=== PATIENT | female | born 1995 | race African-American/Black ===

== ENCOUNTER 2017-01-08 07:00 | Inpatient (IN) ==
[2017-01-08] MEDS: LACTATED RINGERS 1,000 ML IV SCH ×3 (07:34→19:22)
[2017-01-08] MEDS ORDERED: LACTATED RINGERS 500 ML IV PRN (07:46)
[2017-01-08] MEDS ORDERED: ONDANSETRON 4 MG/2 ML VIAL IV PRN ×2 (07:46→21:55)
[2017-01-08 08:00] LABS: Basophils % 0.2 % (0.0-0.8); Eosinophils % 0.4 % (0.00-10.9); Hematocrit 37.1 VOL% (35.7-47.0); Hemoglobin 12.9 GM/DL (12.0-16.0); Immature Granulocytes % 0.6 %; Immature Granulocytes Absolute 0.05 #; Lymphocytes # 2.4 10*3/uL (1.4-4.0); Lymphocytes % 28.5 % (21.3-54.2); Mean Corpuscular HGB Conc 34.8 GM/DL (32-36); Mean Corpuscular Hemoglobin 30 PG (27-34); Mean Corpuscular Volume 86.3 FL (87-102); Mean Platelet Volume 11.9 FL (9.6-12.0); Monocytes # 0.8 10*3/uL (0.11-0.8); Monocytes % 9.3 % (1.7-12.7); Neutrophils # 5.2 10*3/uL (1.4-7.4); Platelet Count 152 T/CUMM (130-400); Red Cell Distribution Width 14.1 % (9.3-17.3); White Blood Count 8.5 T/CUMM (4-12)
[2017-01-08] MEDS ORDERED: OXYTOCIN/LR 20 UNIT/1,000 ML BAG IV SCH (08:00)
--- NOTE | 2017-01-08 08:36 | OB/GYN History & Physical ---
History of Present Illness Chief complaint: In for elective induction of labor due to term . History of present illness: Ms. Sims is a 21 year old female primigravida who presents to labor department for elective induction of labor due to term . Her LORIE is 01/15/2017 for an estimated gestational age of 39 weeks. The patient presents for elective induction of labor due to the above. The risk and benefits has been thoroughly discussed with this patient and significant other, plan of care has been discussed with Dr. Eubanks and all parties are in agreement plan. [facility], she received routine care and her course was uneventful. labs: She is B+ , hepatitis B is negative, rubella is immune, HIV is negative, RPR is nonreactive, GBS culture status unknown. Review of systems is negative with exception of above. Home Medications Medication Instructions Recorded Confirmed Type Multivitamin () [ 1 tablet PO DAILY 10/11/16 01/01/17 History Vitamin] Allergies Allergy/AdvReac Type Severity Reaction Status Date / Time No Known Allergies Allergy Verified 01/01/17 10:37 12 point system: reviewed and no additional remarkable complaints except as stated Medical,Surgical,& Family Hx - Medical History Medical History: noncontributory - Surgical History Surgical History: noncontributory - Family History Family History: Reports;: Family Cancer (Return to grandfather prostate), Family Diabetes (Return to grandmother), Family Hypertension (Mom, dad, maternal grandmother) - Social History 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 - Constitutional General appearance: no acute distress - Antepartum / Post Antepartum Exam Cervix - Dilatation: 3 cm Effacement: 50% Station: -2 Rupture: Intact Presentation: Vertex Heart Rate: 140s Abdomen obstetrics: Present: bowel sounds normal Vagina: Present: normal moisture Uterus exam: Present: enlarged Anus/Rectum: Present: normal perianal skin - Respiratory Respiratory exam: Present: clear to auscultation bilaterally - Cardiovascular Cardiovascular exam: Present: regular rate and rhythm - GI/Abdominal GI/Abdominal exam: Present: normal bowel sounds, soft - Extremities Exam Extremities exam: Present: normal inspection - Neurological Exam Neurological exam: Present: alert, oriented X3 - Psychiatric Psychiatric exam: Present: normal affect, normal mood - Skin Skin exam: Present: normal color, warm Assessment and Plan (1) 39 weeks gestation of Status: Acute Assessment and plan: Admit IV fluids IV Pitocin per protocol Artificial rupture membranes when appropriate Internal monitors if indicated Epidural anesthesia if desired Anticipate Current Visit: Yes Results - Labs CBC & BMP: 01/08/17 07:46
[2017-01-08 08:37] LABS: Alanine Aminotransferase 10 U/L (13-56); Alkaline Phosphatase 172 U/L (45-117); Aspartate Amino Transferase 11 U/L (0-37); Bilirubin,Total < 0.39 MG/DL (0.2-1.0); Blood Urea Nitrogen 9 MG/DL (7-18); Calcium 9.3 MG/DL (8.5-10.1); Glucose 103 MG/DL (74-106); Osmolality,Calculated 271.8 MOS/KG (273-304); Potassium 3.9 MMOL/L (3.5-5.1); Sodium 137 MMOL/L (136-145); Total Protein 7.3 G/DL (6.4-8.3); Uric Acid 4.6 MG/DL (2.6-6.0)
[2017-01-08] MEDS ORDERED: PROMETHAZINE 25 MG/1 ML VIAL IM PRN (11:12)
[2017-01-08] MEDS ORDERED: FAMOTIDINE 20 MG/2 ML VIAL IV ONE (11:12)
[2017-01-08] MEDS ORDERED: hydrOXYzine HCL 25 MG/1 ML VIAL IM PRN (11:12)
[2017-01-08] MEDS ORDERED: ePHEDrine 50 MG/ML AMP IV PRN (11:12)
[2017-01-08] MEDS ORDERED: CITRIC ACID/SODIUM CITRATE 30 ML UDCUP PO ONE (11:12)
[2017-01-08] MEDS ORDERED: fentaNYL 2 MCG/ROPIV 0.2% EPID 150 ML EPIDURAL SCH (11:12)
[2017-01-08] MEDS ORDERED: MEPERIDINE 50 MG/1 ML VIAL IV PRN (11:42)
[2017-01-08 14:36] LABS: Apearance,Urine CLEAR (Clear); Bilirubin,Urine Negative (Negative); Blood, Urine Negative (Negative); Glucose,Urine (UA) Negative (Negative); Ketones,Urine 20 mg/dL (Negative); Mucus,Urine Few /LPF (Occasional); Nitrite,Urine Negative (Negative); Protein,Urine 30 MG/DL; RBC,Urine 1 /HPF (0-4); Squamous Epithelial Cell,Urine Occasional /HPF (0-10); Urine Color Yellow (Yellow); Urine Specific Gravity 1.026 (1.001-1.035); Urine Urobilinogen < 2.0 EU/DL (0.2-1.0); WBC,Urine 1 /HPF (0-6)
[2017-01-08] MEDS ORDERED: TERBUTALINE 1 MG/1 ML VIAL SUBCUT ONE ×2 (17:50→17:58)
[2017-01-08] MEDS ORDERED: LIDOCAINE 1% 50 ML VIAL ONE (20:04)
[2017-01-08] MEDS ORDERED: miSOPROStol 200 MCG TABLET ONE (20:05)
[2017-01-08] MEDS ORDERED: OXYTOCIN 10 UNIT/ML VIAL ONE (20:57)
[2017-01-08] MEDS ORDERED: ceFAZolin 2,000 MG in PREMIX 1 EACH IV ONE (21:20)
[2017-01-08] MEDS ORDERED: OXYTOCIN 10 UNIT/ML VIAL IM ONE (21:20)
[2017-01-08] MEDS ORDERED: OXYTOCIN/LR 20 UNIT/1,000 ML BAG IV ONE ×2 (21:20→21:55)
--- NOTE | 2017-01-08 21:54 | Operative Note ---
Date of procedure: 01/08/17 Procedure: Preoperative diagnosis: Failure to progress, IUGR Postoperative diagnosis: Same Anesthesia:[] Regional anesthesia Estimated blood loss: [] 250 Surgeon: Dr. Eubanks Findings: [] 5 lbs. 14 oz., female occiput posterior large amount of Capoten molding, nuchal cord around the neck once, placenta had multiple areas of calcification consistent with a grade 3 placenta as indicated on the ultrasound , Apgars was 7 and 1 minute 8 at 5, cord blood and cord gas was obtained Complications: None Procedure: Low transverse section The patient was taken to the operating suite heart tones were obtained prior to and after regional anesthesia was obtained. She was placed in supine position her abdomen was prepped and draped in usual manner for major abdominal surgery. Through an abdominal incision the skin, subcutaneous, fascial layer and peritoneal the abdomen was entered. The bladder flap was created and a low transverse incision was made.. Fluid was clear and normal amount X, Apgars, the placenta was delivered and sent to lab for further evaluation. Injected with intrauterine Pitocin. The first layer of the uterus was closed with #1 Vicryl in a continuous locking manner. Close to imbricate the first layer with #1 Vicryl. The peritoneum was approximated with #2-0 Vicryl.[] All the last sponges and instruments were accounted for -2.) #2-0 Vicryl. Fascia was approximated with #0-0 Maxon.. The skin was approximated with howard. She tolerated procedure well and was taken to recovery room in stable condition. Surgeon / Physician: Gold Eubanks Results - Labs CBC & BMP: 01/08/17 07:46 01/08/17 07:46 Discharge Plan - Discharge Medications No Action Multivitamin () [ Vitamin] 1 tablet PO DAILY - Follow Up or Referral - Forms/Instructions
[2017-01-08 21:55] LABS: Cord Arterial Blood HCO3 19.8 MMOL/L
[2017-01-08] MEDS ORDERED: SIMETHICONE CHEW 80 MG TABLET PO PRN (21:55)
[2017-01-08] MEDS ORDERED: RHO(D) IMMUNE GLOBULIN 300 MCG SYRINGE IM ONE (21:55)
[2017-01-08] MEDS ORDERED: ACETAMINOPHEN 325 MG TABLET PO PRN (21:55)
--- NOTE | 2017-01-08 21:55 | Anesthesia Post-Op ---
Anesthesia Post OP - Post Ansesthetic Evaluation Patient seen in post op: Yes Resp: within normal limits CV: within normal limits Mental: within normal limits Temp: within normal limits Faie-Lv-Racnwhswv: within normal limits Nausea and Vomiting: within normal limits Pain: within normal limits
[2017-01-08] MEDS ORDERED: fentaNYL 100 MCG/2 ML VIAL ONE (21:56)
[2017-01-08 21:59] LABS: Cord Venous Blood PCO2 41.6 MMHG
[2017-01-08] MEDS ORDERED: LACTATED RINGERS 1,000 ML IV SCH (22:00)
[2017-01-09] MEDS: IBUPROFEN 800 MG TABLET PO PRN ×2 (00:08→13:05)
[2017-01-09 06:32] LABS: Basophils % 0.1 % (0.0-0.8); Eosinophils % 0.1 % (0.00-10.9); Hematocrit 32.1 VOL% (35.7-47.0); Hemoglobin 11.2 GM/DL (12.0-16.0); Immature Granulocytes % 0.6 %; Immature Granulocytes Absolute 0.08 #; Lymphocytes % 15.2 % (21.3-54.2); Mean Corpuscular HGB Conc 34.9 GM/DL (32-36); Mean Corpuscular Hemoglobin 30 PG (27-34); Mean Corpuscular Volume 85.8 FL (87-102); Mean Platelet Volume 11.6 FL (9.6-12.0); Monocytes % 7.6 % (1.7-12.7); Neutrophils # 10.3 10*3/uL (1.4-7.4); Neutrophils % 76.4 % (38.7-73.9); Platelet Count 114 T/CUMM (130-400); Red Blood Count 3.74 MC/CUMM (3.8-5.5); Red Cell Distribution Width 13.9 % (9.3-17.3); White Blood Count 13.4 T/CUMM (4-12)
[2017-01-09] MEDS: MULTIVITAMIN (PRENATAL) TABLET PO SCH (08:44)
[2017-01-09] MEDS: DOCUSATE SODIUM 100 MG CAPSULE PO SCH ×2 (08:44→21:06)
--- NOTE | 2017-01-09 09:40 | OB/GYN Progress Note ---
Assessment and Plan (1) 39 weeks gestation of Status: Acute Assessment and plan: Admit IV fluids IV Pitocin per protocol Artificial rupture membranes when appropriate Internal monitors if indicated Epidural anesthesia if desired Anticipate Current Visit: Yes (2) Status post primary low transverse section Status: Acute Assessment and plan: Initiate routine postop orders. 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 Vitals: Vital Signs Temp Pulse Resp BP Pulse Ox 01/09/17 07:29 97.6 F 77 20 116/55 96 01/09/17 04:00 97.1 F L 78 18 97/50 99 01/09/17 03:25 97.1 F L 78 18 97/50 99 01/09/17 02:25 86 18 128/78 99 01/09/17 01:25 83 18 125/76 98 01/09/17 00:55 86 18 134/77 99 01/09/17 00:25 98.9 F 91 H 18 148/79 99 01/08/17 23:40 97.9 F 01/08/17 23:10 98.7 F 80 18 135/69 99 01/08/17 22:40 98.7 F 01/08/17 22:25 98.8 F 01/08/17 22:10 98.8 F 01/08/17 21:55 98.6 F 104 H 18 120/56 100 01/08/17 12:00 97.8 F 113 H 17 139/76 General appearance: no acute distress - Antepartum / Post Post Exam Breast: bilateral: normal Abdomen obstetrics: Present: bowel sounds normal Vagina: Present: normal moisture, discharge (Light lochia rubra) Uterus exam: Present: enlarged (Fundus firm and midline) - Head Head exam: Present: normal inspection - Respiratory Respiratory exam: Present: clear to auscultation bilaterally - Cardiovascular Cardiovascular exam: Present: regular rate and rhythm - GI/Abdominal GI/Abdominal exam: Present: normal bowel sounds, soft - Extremities Exam Extremities exam: Present: normal inspection - Back Exam Back exam: Present: normal inspection - Neurological Exam Neurological exam: Present: alert, oriented X3 - Psychiatric Psychiatric exam: Present: normal affect, normal mood - Skin Skin exam: Present: normal color, warm Results - Labs CBC & BMP: 01/09/17 06:26 01/08/17 07:46
[2017-01-09] MEDS ORDERED: ceFAZolin 1,000 MG VIAL IV ONE (15:09)
[2017-01-09] MEDS: MAGNESIUM HYDROXIDE SUSP 30 ML UDCUP PO PRN (21:06)
[2017-01-10] MEDS: IBUPROFEN 800 MG TABLET PO PRN (01:49)
[2017-01-10] MEDS: MULTIVITAMIN (PRENATAL) TABLET PO SCH (09:07)
[2017-01-10] MEDS: MAGNESIUM HYDROXIDE SUSP 30 ML UDCUP PO PRN (09:07)
[2017-01-10] MEDS: DOCUSATE SODIUM 100 MG CAPSULE PO SCH (09:07)
[2017-01-10 11:32] VITALS: BP 144/74
[2017-01-10] MEDS ORDERED: DIPH/TET/ACEL PERT BOOSTER VACCINE 0.5 ML VIAL IM ONE (11:39)
--- NOTE | 2017-01-10 14:19 | Pathology Report from [facility] ---
[facility] ACCESSION # : [id number] PATIENT NAME : Marco Antonio Sims ORDERING DR : SHAHNAZ AGUIAR MD CLINICAL HX: IUP @ 39 wks (EDC 01/15/2017), failure to progress, primary C/S, grade 3 placenta POST-OP DX: Same SPECIMEN INFO: Placenta GROSS DESCRIPTION: The specimen is received fresh labeled MARCO ANTONIO SIMS consists of a 386.0 gm placenta measuring 16.0 x 19.0 x 2.2 cm. The membranes are pink-hamilton and translucent. The umbilical cord measures 23.0, contains three vessels and is pericentrally inserted. The surface is blue -senior and intact. The maternal surface is intact with scattered calcifications seen. Sectioning reveals no gross abnormalities. Sections submitted (A) membranes and cord, (B) and maternal surfaces. DIAGNOSIS FOR MARCO ANTONIO SIMS: PLACENTA, 39.0 WEEKS GESTATIONAL AGE, SECTION: Mature placenta, 386 gms trimmed weight, <10th percentile for provided gestational age. Trivascular umbilical cord, 23 cm in length. COLLECTED DATE: 01/09/2017 [facility] REPORT DATE: 01/10/2017 ELECTRONICALLY SIGNED BY: Tere Bauman M.D. 01/10/2017 - 11:53:07 RONNELL
== END 2017-01-10 16:00 | disposition home or self-care (01) | DRG 540 ==
LOC: N.LDOUT 07:00 → N.LD 07:01 → N.OB 01-09 00:25
PROVIDERS: ADMIT Obstetrics & Gynecology; ATTEND Obstetrics & Gynecology
PROC: LDCSECT (ICD-10-PCS; 2017-01-08 21:00)